=== PATIENT | female | born 1935 | race Hispanic/Latino ===

== ENCOUNTER → 2017-10-25 | Outpatient (CLI) | payer MEDICARE | END | disposition home or self-care (01) | LOC: SHCH 07:55 | PROVIDERS: ATTEND Internal Medicine Cardiovascular Disease | DX: I25.10 Atherosclerotic heart disease of native coronary artery without angina pectoris (principal) | CPT/HCPCS: 93880 ==

== ENCOUNTER → 2019-02-08 | Outpatient (CLI) | payer MEDICARE | END | disposition home or self-care (01) | LOC: SHCH 09:47 | PROVIDERS: ATTEND Internal Medicine Cardiovascular Disease | DX: I65.23 Occlusion and stenosis of bilateral carotid arteries (principal); I08.0 Rheumatic disorders of both mitral and aortic valves; I11.9 Hypertensive heart disease without heart failure | CPT/HCPCS: 93306; 93880 ==

== ENCOUNTER 2019-03-20 05:44 | Observation (INO) | payer MEDICARE ==
[2019-03-17 10:18] VITALS: BP 135/65
[2019-03-17 10:19] LABS: BASOPHILS % (AUTO) 1.1 % (0.0-5.0); EOSINOPHILS % (AUTO) 1.8 % (0.0-8.0); HEMATOCRIT 40.2 % (36-48); MEAN CORPUSCULAR HEMOGLOBIN 28.6 pg (27.0-33.0); MEAN CORPUSCULAR HGB CONC 33.7 g/dL (32.0-36.0); MEAN CORPUSCULAR VOLUME 84.9 fL (79-99); MONOCYTES % (AUTO) 8.8 % (3.0-13.0); NEUTROPHILS % (AUTO) 56.3 % (40.0-77.0); NUCLEATED RED BLOOD CELLS 0.1 % (0.0-0.19); PLATELET COUNT (AUTO) 225 K/uL (130-400); RED BLOOD CELL COUNT(AUTO) 4.73 MIL/uL (4.00-5.50); RED CELL DISTRIBUTION WIDTH 15.7 % (11.0-15.5); WHITE BLOOD COUNT (AUTO) 6.3 K/uL (4.8-10.8)
[2019-03-17 10:31] LABS: CREATININE 1.1 mg/dL (0.5-1.5); POTASSIUM 4.2 mmol/L (3.5-5.1)
[2019-03-17 10:45] LABS: INR 1.02 (0.85-1.15); PARTIAL THROMBOPLASTIN TIME 29.7 SEC (26.3-35.5); PROTHROMBIN TIME 10.7 SEC (9.6-11.6)
[2019-03-20] VITALS (8 sets, daily range): BP systolic 116–127; BP diastolic 59–88
[~2019-03-20] VITALS: Ht 157.5 cm; Wt 58.2 kg
[~2019-03-20 05:44] MED LIST: AMLO10TA7 PO; AMLO5TAB9 PO; APIX5TAB PO; ASPI-555 PO; ATOR10TA69 PO; CEFAZOLIN SODIUM 1 GM VIAL IVP SCH; FOLIC ACID PO; GLYB2.5 PO; RENAVITE PO; VITAMIN B12 PO
[2019-03-20] MEDS ORDERED: SODIUM CHLORIDE 0.9% 1000ML 1,000 ML IV ONE (06:06)
--- NOTE | 2019-03-20 11:05 | NUR ---
PROCEDURE PT TAKEN TO [employer] BASIS CONSULTANT FOR SCHEDULED PROCEDURE , FAMILY AT BEDSIDE
[2019-03-20] MEDS ORDERED: LIDOCAINE HCL 1% MDV 50ML VIAL ONE (11:18)
[2019-03-20] MEDS ORDERED: CEFAZOLIN SODIUM 1 GM VIAL ONE (11:18)
[2019-03-20] MEDS ORDERED: MIDAZOLAM HCL 1 MG/ML 2ML VIAL ONE ×3 (11:18→12:40)
[2019-03-20] MEDS ORDERED: BUPIVACAINE/PF 0.25% 30ML VIAL IJ ONE (11:18)
[2019-03-20] MEDS ORDERED: MEPERIDINE-PF 25 MG/ML SYG ONE ×3 (11:18→12:40)
[2019-03-20] MEDS ORDERED: IODIXANOL 320 MG/ML 100 ML VIAL ONE (11:25)
[2019-03-20] MEDS ORDERED: PROPOFOL 10 MG/ML 20ML VIAL IV ONE (11:59)
[2019-03-20] MEDS ORDERED: OCTYL 2-CYANOACRYLATE 1 EACH TP ONE (13:04)
[2019-03-20] MEDS ORDERED: ACETAMINOPHEN-CODEINE 300/30MG TAB PO PRN ×2 (13:30)
[2019-03-20] MEDS ORDERED: ONDANSETRON HCL 4 MG/2 ML VIAL IV PRN (13:30)
--- NOTE | 2019-03-20 13:50 | NUR ---
POST RECEIVED PT FROM [employer] SUPERVISOR, S/P BIVAICD INSERTION TO LEFT UPPER CHEST AREA WITH PRESSURE DRESSING DRY AND INTACT, NO BLEEDING OR HEMATOMA NOTED TO SITE. ARM SLING IN PLACE. PT AWAKE AND ALERT, BUT SEEMED DROWSY, VS STABLE ON ARRIVAL. FAMILY AT BEDSIDE. ICE PACKS APPLIED TO LEFT UPPER CHEST AREA. PLAN OF CARE DISCUSS WITH PT/ FAMILY, INSTRUCTED TO KEEP BEDREST UNTIL AM.
[2019-03-20] MEDS: ALPRAZOLAM 0.5 MG TABLET PO SCH ×2 (14:00→21:00)
--- NOTE | 2019-03-20 14:05 | NUR ---
MD DR. BRYAN NOTIFIED OF PATIENT TO BE ADMITTED UNDER HIS SERVICES.
[2019-03-20] MEDS ORDERED: ACETAMINOPHEN 325 MG TAB ONE (15:39)
[2019-03-20] MEDS ORDERED: ACETAMINOPHEN 325 MG TAB PO PRN (15:45)
[2019-03-20] MEDS: INSULIN HUMULIN R 100 UNIT/ML 3ML SQ SCH ×2 (16:30→21:00)
--- NOTE | 2019-03-20 17:00 | NUR ---
REPORT TO [facility] PT TRANSPORTED VIA BED.
[2019-03-20] MEDS ORDERED: GLYBURIDE 2.5 MG TAB PO SCH (21:00)
[2019-03-20] MEDS ORDERED: ATORVASTATIN CALCIUM 10 MG TABLET PO SCH (21:00)
[2019-03-20] MEDS ORDERED: LOSARTAN 50 MG TABLET PO SCH (21:00)
[2019-03-20] MEDS ORDERED: FOLIC ACID/VITAMIN B COMP W-C 1 MG CAP/TAB PO SCH (21:00)
[2019-03-20] MEDS ORDERED: AMLODIPINE BESYLATE 5 MG TAB PO SCH (21:00)
[2019-03-20] MEDS: CEFAZOLIN SODIUM 1 GM VIAL IVP SCH (21:08)
[2019-03-21] VITALS: BP 111/68
[2019-03-21] MEDS ORDERED: ONDANSETRON HCL 4 MG/2 ML VIAL IV PRN
[2019-03-21] MEDS ORDERED: ACETAMINOPHEN 325 MG TAB PO PRN ×2
[2019-03-21] MEDS ORDERED: HYDROCODONE/ACETAMINOPHEN 5/325 MG TAB PO PRN ×2
[2019-03-21 03:56] VITALS: BP 104/64
[2019-03-21] MEDS: CEFAZOLIN SODIUM 1 GM VIAL IVP SCH (04:53)
[2019-03-21] MEDS: INSULIN HUMULIN R 100 UNIT/ML 3ML SQ SCH ×2 (06:16→11:30)
[2019-03-21 07:15] VITALS: BP 104/57
[2019-03-21] MEDS ORDERED: ASPIRIN 81MG TAB.CHEW PO SCH (09:00)
[2019-03-21] MEDS ORDERED: FAMOTIDINE/PF 20 MG/2 ML VIAL IV SCH (09:00)
[2019-03-21] MEDS ORDERED: CYANOCOBALAMIN (VITAMIN B-12) 1,000 MCG TABLET PO SCH (09:00)
[2019-03-21] MEDS: ALPRAZOLAM 0.5 MG TABLET PO SCH (09:00)
[2019-03-21] MEDS ORDERED: FOLIC ACID 400 MG PO SCH (09:00)
[2019-03-21 11:04] VITALS: BP_SYST 103; BP_SYST 131; BP_DIAS 59; BP_DIAS 78
[2019-03-21] MEDS ORDERED: LOSA50TA64 PO (14:04)
[2019-03-21] MEDS ORDERED: DOXY100T2 PO (14:05)
== END 2019-03-21 14:29 | disposition home or self-care (01) ==
LOC: DAH 05:44 → DAHIP 05:45 → 2DH 17:44
PROVIDERS: ADMIT Internal Medicine; ATTEND Internal Medicine
DX: I11.0 Hypertensive heart disease with heart failure (principal); E11.9 Type 2 diabetes mellitus without complications; E78.5 Hyperlipidemia, unspecified; Z45.02 Encounter for adjustment and management of automatic implantable cardiac defibrillator; I25.10 Atherosclerotic heart disease of native coronary artery without angina pectoris; I48.92 Unspecified atrial flutter; N28.9 Disorder of kidney and ureter, unspecified; Z79.84 Long term (current) use of oral hypoglycemic drugs; Z95.1 Presence of aortocoronary bypass graft; I50.9 Heart failure, unspecified; I25.5 Ischemic cardiomyopathy; Z95.810 Presence of automatic (implantable) cardiac defibrillator; Z86.73 Personal history of transient ischemic attack (TIA), and cerebral infarction without residual deficits; Z79.899 Other long term (current) drug therapy
CPT/HCPCS: 33225; 33249; 36415; 71046; 80048; 82948 ×5; 85025; 85610; 85730; 93005 ×2; 96374; 96376; A4606; C1769 ×2; C1882; C1894; C1895 ×2; C1900; G0378 ×15; J0690 ×3; J2175 ×3; J2250 ×3; J2704; J3490 ×3; J7030; Q9967; 99156; 99157

== ENCOUNTER → 2019-09-11 | Outpatient (CLI) | payer MEDICARE ==
[~2019-09-11] MED LIST changes: -AMLO5TAB9 PO; -CEFAZOLIN SODIUM 1 GM VIAL IVP SCH; +DOXY100T2 PO; +LOSA50TA64 PO
== END | disposition home or self-care (01) ==
LOC: SHCH 10:52
PROVIDERS: ATTEND Internal Medicine Cardiovascular Disease
DX: I77.1 Stricture of artery (principal); I87.2 Venous insufficiency (chronic) (peripheral)
CPT/HCPCS: 93970

== ENCOUNTER → 2020-07-10 | Outpatient (CLI) | payer MEDICARE ==
[~2020-07-10] MED LIST changes: +AMLO-258 PO; -AMLO10TA7 PO; -ASPI-555 PO; +ASPI-556 PO
== END | disposition home or self-care (01) ==
LOC: SHCH 13:22
PROVIDERS: ATTEND Internal Medicine Cardiovascular Disease
DX: I08.1 Rheumatic disorders of both mitral and tricuspid valves (principal); I48.21 Permanent atrial fibrillation; R55 Syncope and collapse
CPT/HCPCS: 93306; 93356

== ENCOUNTER → 2021-02-19 | Outpatient (CLI) | payer MEDICARE ==
[~2021-02-19] MED LIST changes: -GLYB2.5 PO; +GLYB2.5T6 PO
== END | disposition home or self-care (01) ==
LOC: SHCH 11:20
PROVIDERS: ATTEND Internal Medicine Cardiovascular Disease
DX: I70.293 Other atherosclerosis of native arteries of extremities, bilateral legs (principal)
CPT/HCPCS: 93925

== ENCOUNTER → 2021-06-26 | Outpatient (CLI) | payer MEDICARE | END | disposition home or self-care (01) | LOC: RAH 09:08 | PROVIDERS: ATTEND Internal Medicine Cardiovascular Disease | DX: R19.00 Intra-abdominal and pelvic swelling, mass and lump, unspecified site (principal); Z90.49 Acquired absence of other specified parts of digestive tract | CPT/HCPCS: 76700 ==

== ENCOUNTER → 2023-09-30 | Outpatient (CLI) | payer MEDICARE | END | disposition home or self-care (01) | LOC: SHCH 10:40 | PROVIDERS: ATTEND Internal Medicine Cardiovascular Disease | DX: I08.0 Rheumatic disorders of both mitral and aortic valves (principal); I11.9 Hypertensive heart disease without heart failure; E78.5 Hyperlipidemia, unspecified; E11.9 Type 2 diabetes mellitus without complications; Z95.0 Presence of cardiac pacemaker; Z95.1 Presence of aortocoronary bypass graft | CPT/HCPCS: 93306 ==

== ENCOUNTER → 2025-04-06 | Outpatient (CLI) | payer MEDICARE ==
[~2025-04-06] MED LIST changes: -AMLO-258 PO; +CYAN-106 PO; -DOXY100T2 PO; +FOLI1TAB85 PO; +GLIM1TAB56 PO; -GLYB2.5T6 PO; +METO25TA6 PO; -RENAVITE PO; -VITAMIN B12 PO
--- NOTE | 2025-04-07 06:03 | HMCIMG ---
EXAM: CR Mandible, 6 Views. CLINICAL HISTORY: Fall. Injury. COMPARISON: Radiograph of the mandible dated 01/23/2015. FINDINGS: No acute fracture or aggressive appearing osseous lesion. Mild osteopenia. 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 Unremarkable soft tissues. IMPRESSION: No acute bony abnormality is evident. Mild osteopenia and degenerative changes with interval worsening. /[place]
== END | disposition home or self-care (01) ==
LOC: RAH 14:40
PROVIDERS: ATTEND Internal Medicine
DX: S00.83XA Contusion of other part of head, initial encounter (principal); M26.69 Other specified disorders of temporomandibular joint; M85.88 Other specified disorders of bone density and structure, other site; W19.XXXA Unspecified fall, initial encounter; Y93.89 Activity, other specified; Y92.89 Other specified places as the place of occurrence of the external cause; Y99.8 Other external cause status
CPT/HCPCS: 70110

== ENCOUNTER 2025-05-24 15:48 | Emergency (ER) | payer MEDICARE ==
[~2025-05-24] VITALS: Ht 152.4 cm; Wt 68.0 kg
--- NOTE | 2025-05-24 16:27 | EKG ---
[facility] Test Date: 2025-05-24 Test Time: 16:21:42 Pat Name: NURY PAULA Department: ED Room: Gender: F Rehab Rn: [id number] : 1935 Requested By: JIMMIE VELIZ Order Number: [id number] Reading MD: Juarez Pineda Measurements Intervals [place] Rate: 80 P: 97 DC: 199 QRS: 222 QRSD: 128 T: 117 QT: 415 QTc: 480 Interpretive Statements Atrial-sensed ventricular-paced rhythm Compared to ECG 01/25/2024 09:23:03 No significant changes Electronically Signed On 05-27-2025 21:30:52 CDT by Juarez Pineda Please click the below link to view image of tracing.
[2025-05-24 16:35] LABS: IMMATURE GRANULOCYTE ABSOLUTE 0.02 K/uL (0-1); NUCLEATED RED BLOOD CELLS 0.0 % (0.0-0.19); PLATELET COUNT (AUTO) 245 K/uL (130-400); RED BLOOD CELL COUNT(AUTO) 4.35 MIL/uL (4.00-5.50); RED CELL DISTRIBUTION WIDTH 15.6 % (11.0-15.5); WHITE BLOOD COUNT (AUTO) 6.4 K/uL (4.8-10.8)
[2025-05-24 16:39] LABS: CREATININE 1.0 mg/dL (0.5-1.0); GLOMERULAR FILTR. RATE CALC 54.0 mL/min (>90); GLUCOSE,RANDOM 186.0 mg/dL (70-105); SODIUM SERUM 129.0 mmol/L (136-145); UREA NITROGEN, BLOOD 16.0 mg/dL (7-18)
[2025-05-24 16:44] LABS: CREATINE KINASE, TOTAL 51.0 U/L (21-232)
--- NOTE | 2025-05-24 17:27 | ERN ---
General Chief Complaint: Seizure Stated Complaint: SEIZURES Time Seen by MD: 15:57 Source: patient History of Present Illness Initial Comments PATIENT IS A AN 89-YEAR-OLD FEMALE COMING IN WITH SEIZURE-LIKE ACTIVITY. PER FAMILY MEMBER PATIENT DID HAVE A SEIZURE HAS NOT HAD SOMETHING SIMILAR TO THIS IN THE PAST. Allergies: Coded Allergies: No Known Drug Allergies (Unverified Allergy, Unknown, 03/17/19) Home Meds Reported Medications Metoprolol Tartrate (Metoprolol Tartrate) 25 Mg Tablet, 25 MG PO BID, TAB 01/25/24 Cyanocobalamin (Vitamin B-12) (Vitamin B12) 1,000 Mcg Tablet, 1000 MCG PO DAILY, TAB 01/25/24 Vit B Cmplx 3/FA/Vit C/Biotin (Yue-Carl Rx Tablet) 1 Mg-60 Mg-300 Mcg Tablet, 1 EACH PO HS, TAB 01/25/24 Glimepiride (Glimepiride) 1 Mg Tablet, 1 MG PO DAILY, TAB 01/25/24 Losartan Potassium (Losartan Potassium) 50 Mg Tablet, 50 MG PO AM, TAB 03/21/19 [Folic Acid] No Conflict Check, 400 MG PO DAILY 03/17/19 Apixaban (Eliquis) 5 Mg Tablet, 5 MG PO BID, TAB 03/17/19 Aspirin (Aspir 81) 81 Mg Tablet.dr, 81 MG PO DAILY, TAB 03/17/19 Atorvastatin Calcium (Atorvastatin Calcium) 10 Mg Tablet, 10 MG PO HS, TAB 03/17/19 Past Medical History Past Medical History: A-Fib, Dementia, Diabetes-Type II, High Cholesterol, Hypertension Past Surgical History: Unknown ROS Dictation CONSTITUTIONAL: NO CHILLS, NO FEVER, NO WEAKNESS, NO DIAPHORESIS, NO MALAISE. HEAD/FACE: NO SIGNS OF TRAUMA. EENT: NO EYE PAIN, NO BLURRED VISION, NO TEARING, NO DOUBLE VISION, NO EAR PAIN, NO EAR DISCHARGE, NO NOSE PAIN, NO NASAL CONGESTION, NO THROAT PAIN, NO THROAT SWELLING, NO MOUTH PAIN. RESPIRATORY: NO COUGH, NO ORTHOPNEA, NO SOB, NO STRIDOR, NO WHEEZING. CARDIOVASCULAR: NO CHEST PAIN, NO EDEMA, NO PALPITATIONS, NO SYNCOPE. GASTROINTESTINAL/ABDOMINAL: NO ABDOMINAL PAIN, NO CONSTIPATION, NO DIARRHEA, NO NAUSEA, NO VOMITING. GENITOURINARY: NO ABNORMAL DISCHARGE, NO DYSURIA, NO FREQUENT URINATION, NO HEMATURIA. NO COMPLAINTS OF PAIN IN THE GENITALS. MUSCULOSKELETAL: NO BACK PAIN, NO GOUT, NO JOINT PAIN, NO JOINT SWELLING, NO MUSCLE PAIN, NO MUSCLE STIFFNESS, NO NECK PAIN. INTEGUMENTARY: NO CHANGE IN COLOR, NO CHANGE IN HAIR/NAILS, NO DRYNESS, NO LESION, NO LUMPS, NO RASH. NEUROLOGICAL/PSYCH: NO ANXIETY, NOT DEPRESSED, NO EMOTIONAL PROBLEM, NO HEADACHE, NO NUMBNESS, NO PRE-EXISTING DEFICIT, NO HISTORY OF SEIZURES, NO TREMORS, NO WEAKNESS. HEMATOLOGIC/LYMPHATIC: NOT ANEMIC, NO HISTORY OF BLOOD CLOTS, NO APPARENT BLEEDING, NO BRUISING, GLANDS NOT SWOLLEN. ALL SYSTEMS NEGATIVE, EXCEPT NOTED. Physical Exam Physical Exam Dictation VITAL SIGNS: REVIEWED. GENERAL APPEARANCE: ALERT, ORIENTED X3, NO ACUTE DISTRESS, OBESE. HEAD AND FACE: NON-TRAUMATIC. EYES: PERRL, PINK CONJUNCTIVAS, EYELID NO TRAUMA, ANTERIOR CHAMBER CLEAR. EARS: PINNAS INTACT AND NO SIGNS OF TRAUMA OR ERYTHEMA. EAR CANALS CLEAR AND NO DISCHARGE. TMS NO ERYTHEMA. NOSE: NO DISCHARGE, NO BLEEDING. OROPHARYNX: MOUTH NORMAL, TEETH NO CARIES, TONGUE PINK. PHARYNX CLEAR, NO ERYTHEMA. TONSILS NO EXUDATES, NO ABSCESSES NOTED. MUCOUS MEMBRANE MOIST. NECK: SUPPLE, NON-TENDER, NO THYROMEGALY, NO MASSES, NO JVD, NO BRUITS. BREAST: DEFERRED. CHEST: NO TENDERNESS, NO CREPITUS, NO PARADOXICAL MOVEMENT, NO RETRACTIONS. LUNGS: CLEAR, WELL-VENTILATED, SYMMETRIC, NO RALES, NO WHEEZING, NO RHONCHI, NO STRIDOR, GOOD BREATH SOUNDS BILATERALLY. HEART: REGULAR RATE, REGULAR RHYTHM, NO MURMUR, NO GALLOPS. VASCULAR: NO PERIPHERAL EDEMA. ABDOMEN: SOFT, POSITIVE BOWEL SOUNDS, NONDISTENDED, NO GUARDING, NONTENDER, NO REBOUND, NO MASSES NO HEPATOMEGALY, NO SPLENOMEGALY, NO ALEXANDER'S SIGN, NO HERNIAS. RECTAL: DEFERRED. GENITAL: DEFERRED. NEUROLOGICAL: NORMAL SPEECH, GROSS MOTOR FUNCTION INTACT, GROSS SENSORY FUNCTION INTACT. MUSCULOSKELETAL: NECK NONTENDER, FULL RANGE OF MOTION, BACK NONTENDER, FULL RANGE OF MOTION. EXTREMITIES: NONTENDER, FULL RANGE OF MOTION. SKIN: COLOR PINK, DRY, NO TURGOR, NO RASH, NO LACERATIONS, NO ABRASIONS, NO CONTUSIONS. LYMPHATICS: DEFERRED. Results Laboratory and Microbiology Lab and Micro Result Laboratory Tests Test 05/24/25 16:25 White Blood Count 6.4 K/uL (4.8-10.8) Red Blood Count 4.35 MIL/uL (4.00-5.50) Hemoglobin 12.0 g/dL (12.0-16.0) Hematocrit 36.5 % (36-48) Mean Corpuscular Volume 83.9 fL (79-99) Mean Corpuscular Hemoglobin 27.6 pg (27.0-33.0) Mean Corpuscular Hemoglobin Concent 32.9 g/dL (32.0-36.0) Red Cell Distribution Width 15.6 % (11.0-15.5) H Platelet Count 245 K/uL (130-400) Mean Platelet Volume 9.5 fL (7.5-10.5) Immature Granulocyte % (Auto) 0.3 % (0-1) Neutrophils (%) (Auto) 59.9 % (40.0-77.0) Lymphocytes (%) (Auto) 23.1 % (21.0-51.0) Monocytes (%) (Auto) 12.2 % (3.0-13.0) Eosinophils (%) (Auto) 3.6 % (0.0-8.0) Basophils (%) (Auto) 0.9 % (0.0-5.0) Neutrophils # (Auto) 3.8 K/uL (1.8-7.7) Lymphocytes # (Auto) 1.5 K/uL (1.0-4.8) Monocytes # (Auto) 0.8 K/uL (0.1-1.0) Eosinophils # (Auto) 0.23 K/uL (0.00-0.70) Basophils # (Auto) 0.06 K/uL (0.00-0.20) Absolute Immature Granulocyte (auto 0.02 K/uL (0-1) Nucleated Red Blood Cells 0.0 % (0.0-0.19) Sodium Level 129 mmol/L (136-145) L Potassium Level 4.5 mmol/L (3.5-5.1) Chloride Level 95 mmol/L (101-111) L Carbon Dioxide Level 27 mmol/L (21-32) Blood Urea Nitrogen 16 mg/dL (7-18) Creatinine 1.0 mg/dL (0.5-1.0) Glomerular Filtration Rate Calc 54 mL/min (>90) Random Glucose 186 mg/dL (70-105) H Total Calcium 8.6 mg/dL (8.5-10.1) Magnesium Level 1.70 mg/dL (1.80-2.40) L Total Creatine Kinase 51 U/L (21-232) Troponin I High Sensitivity 22 ng/L (4-50) Labs Reviewed?: Yes EKG/XRAY/US/CT/MRI EKG Comment [id number] TIME 4:21 P.M. VENTRICULAR RATE [address] WAVE ELEVATION OR DEPRESSION CT Scan Comment [place] [address] [place] [id number] IMAGING REPORT Signed PATIENT: NURY PAULA MR#: [id number] : 1935 SEX: F AGE: 89 LOCATION: [facility] ORDER [id number] STATUS: REG ER REPORT#: [id number] SERVICE 1609 REASON: SEIZURE ORDERING PHYSICIAN: JIMMIE VELIZ MD PROCEDURE: HEAD WO - CT HEAD/BRAIN W/O CONTRAST EXAM: CT Head Without IV contrast. CLINICAL HISTORY: SEIZURE TECHNIQUE: Axial computed tomography images of the head/brain without intravenous contrast. COMPARISON: None provided. FINDINGS: BRAIN: Atrophy. Periventricular white matter changes felt secondary to chronic microangiopathy. No evidence of acute hemorrhage. No mass lesion. No CT evidence for acute territorial infarct. No midline shift or extra-axial collections. VENTRICLES: No hydrocephalus. ORBITS: The orbits are unremarkable. SINUSES AND MASTOIDS: Left maxillary sinus disease BONES: No fracture. SOFT TISSUES: Unremarkable. IMPRESSION: No acute intracranial abnormality. /[place] DICTATED BY: JADEN MANJARREZ MD DATE: 05/24/251840 ELECTRONICALLY SIGNED BY: JADEN MANJARREZ MD DATE: 05/24/251840 [facility] MDM: 7.:00 p.m. patient was signed out to me by a.m. physician. This is an 89-year-o ld female with multiple medical problems lives with her son Ben and was brought to the emergency room for evaluation of a tonic-clonic seizure around 3:00 p.m. today. Ben stated that patient has underlying dementia and past week she was more with it and was doing fairly well. She was sitting on the couch and suddenly developed rolling of the eyes back became stiff and had sym metric body movements. Patient also had bitten her tongue on the left side and her lip. The movements lasted for about a minute and patient has slowly recovered eventually. Patient is a very poor historian due to progressive underlying dementia. 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 Patient was moaning and agitated screaming intermittently and mumbling uni ntelligibly. Temperature 98.6 pulse 102 respirations 16 blood pressure 133/76 with a pulse oximetry of 98% on room air Her chronic medical problems include atrial fibrillation on apixaban, diabetes mellitus type 2, hypertension, hypercholesterolemia, advanced cardiomyopathy with an ejection fraction of 35% in 2019, coronary artery disease status post CABG and dementia Labs reviewed sodium 129 chloride 95 BUN and creatinine are 16 and 1.0 with a glucose of 186 CBC is with a normal limits. Troponins are negative CT scan of the head without contrast was essentially unremarkable for any hemorrhage or new intracranial event. Brain atrophy consistent with age noted. I updated son Ben at bedside on my concerns for new tonic-clonic seizure which may simply be related to multiple triggering events including dehydration, infection, amyloid deposits due to progressive dementia. Due to lack of availability of neurology services I have recommended transfer to [facility] for evaluation of her new onset tonic-clonic seizures and family is agreeable 7:50 p.m. initiated transfer 9:[address] Rosa Elena Rich, hospitalist and patient's primary care physician has a accepted the patient for admission to [facility] for further management. Once transportation is arranged patient will be transferred. DIFFERENTIAL DIAGNOSIS: NEW ONSET SEIZURE, RATIONALE: TESTS CONSIDERED AND ORDERED SECONDARY TO SHARED DECISION MAKING INCLUDE: LABS, ECG AND RADIOLOGY PREVIOUS OUTSIDE RECORDS REVIEWED: OLD ER VISITS. RISK OF COMPLICATION AND/OR MORBIDITY OR MORTALITY OF PATIENT MANAGEMENT: NONE MEDICATIONS-PER MEDICATION RECONCILIATION NEED FOR HOSPITALIZATION: PATIENT DOES MEET CRITERIA FOR HOSPITALIZATION. NEED FOR EMERGENCY MAJOR/MINOR SURGERY: NO THERE ARE NO SOCIAL CONCERNS WITH THIS PATIENT. PRESCRIPTION DRUG MANAGEMENT PRESCRIPTIONS WILL INCLUDE SYMPTOMATIC CARE PATIENT'S PRIOR EXTERNAL MEDICAL RECORDS FROM OTHER ER VISITS WERE REVIEWED BY ME INDICATED. PRIOR TESTING AND RESULTS FROM PREVIOUS VISITS WERE REVIEWED. PRIOR TESTS WERE TAKEN INTO ACCOUNT WITH MEDICAL DECISION MAKING AND RESOURCE UTILIZATION, INDEPENDENT HISTORIAN/HISTORIANS WERE USED TO OBTAIN COMPLETE MEDICAL HISTORY. I INDEPENDENTLY INTERPRETED THE TEST THAT WERE PERFORMED, RESULTS WERE REVIEWED BY ME AND CONSIDERED FINDINGS ON RADIOLOGY IF ORDERED. MEDICAL MANAGEMENT AND EXAMINATION INTERPRETATION DISCUSSIONS WERE HAD BY ME WITH OTHER QUALIFIED HEALTHCARE PROFESSIONALS INDICATED FOR THE PATIENT'S CARE. ED Course Orders Procedure Category Date Status Time Cbc With Differential LAB 05/24/25 Complete 16:09 Chest 1vw RAD 05/24/25 Resulted 16:09 12 Lead Ekg Tracing- EKG 05/24/25 Complete Technical 16:09 0.9%Nacl 1000ml (Ns PHA 05/24/25 Complete 1000ml) 16:30 Magnesium LAB 05/24/25 Complete 16:09 Creatine Kinase, Total LAB 05/24/25 Complete 16:09 Troponin I High LAB 05/24/25 Complete Sensitivity 16:09 Urinalysis Profile LAB 05/24/25 Logged 16:09 Basic Metabolic Panel LAB 05/24/25 Complete 16:09 Ct Head/Brain W/O CT 05/24/25 Resulted Contrast 16:09 Magnesium 2gm Premix PHA 05/24/25 In Process 50ml (Magnesium 2gm 19:00 Levetiracetam 500 PHA 05/24/25 In Process Mg/5 Ml Sd V (Keppra 5 22:00 Albuterol 0.083% PHA 05/24/25 In Process 2.5mg/3ml (Proventil 20:00 Furosemide 20mg Vial PHA 05/24/25 In Process (Lasix 20mg Vial) 20:00 Haloperidol Inj PHA 05/24/25 Complete (Haldol Inj) 23:00 Current Medications Medications (Trade) Dose Ordered Sig/Pura Route PRN Reason Start Time Stop Time Status Last Admin Dose Admin Albuterol Sulfate (Proventil 0.083% 2.5mg/3ml) 2.5MG ONCE IH 05/24/25 20:00 05/24/25 23:59 05/24/25 21:57 Furosemide (LASix 20MG VIAL) 20 mg ONCE IV 05/24/25 20:00 05/24/25 23:59 05/24/25 21:38 Haloperidol Lactate (Haldol Inj) 2 mg ONCE ONCE IM 05/24/25 23:00 05/24/25 23:01 DC 05/24/25 23:04 Levetiracetam 1000 mg/Sodium Chloride 100 ml @ 400 mls/hr Q8H6 IV 05/24/25 22:00 06/23/25 21:59 05/24/25 22:02 Magnesium Sulfate 50 ml @ 0 mls/hr PROTOCOL IV 05/24/25 19:00 06/23/25 18:59 05/24/25 21:38 Sodium Chloride 1,000 ml @ 0 mls/hr ONCE ONCE IV 05/24/25 16:30 05/24/25 16:31 DC 05/24/25 17:48 Vital Signs Date Time Temp Pulse Resp B/P (MAP) Pulse Ox O2 Delivery O2 Flow Rate FiO2 05/24/25 23:18 78 18 125/79 97 Room Air* 0 21 05/24/25 22:08 80 18 138/83 98 Room Air* 0 21 05/24/25 21:53 92 23 05/24/25 19:46 97.9 81 18 139/85 99 Room Air* 0 05/24/25 15:49 102 16 133/76 98 Room Air 0 We will perform diagnostic labs, advanced imaging and administer medications acc ording to the patient's complaint. Once the results are available, will review and personally interpreted the labs to rule out any acute life-threatening emergency the trach require immediate intervention and treatment. I will then re-evaluate the patient after treatment and diagnostic exams have return to determine whether the patient requires any further testing, can safely be discharged home or need further admission to hospital for additional treatment and evaluation. DX & DISP Disposition: Transfer Departure Impression: Primary Impression: New onset seizure Additional Impressions: Delirium, Dementia, Atrial fibrillation, Current use of snf anticoagulation, Ischemic cardiomyopathy, CAD (coronary artery disease) Condition: Stable Additional Instructions: The patient has been informed about all the diagnostic tests and procedures c arried out in the emergency room today and has confirmed understanding of the results. Patient will be transferred to a facility that provides a higher level of care since such services are not accessible locally or within our immediate community. The patient is alert oriented and not experiencing any acute distress. There are no signs of sepsis and patient's hemodynamic status is stable at the moment. Medically, the patient is considered stable for transfer Patient accepted by Dr. Rich for admission to [facility] step-down unit. Referrals: ROSA ELENA RICH MD (PCP) JIMMIE VELIZ MD May 24, 2025 17:27 DANISH ALMODOVAR MD May 25, 2025 00:06
--- NOTE | 2025-05-24 17:42 | HMCIMG ---
EXAM: CT Head Without IV contrast. CLINICAL HISTORY: SEIZURE TECHNIQUE: Axial computed tomography images of the head/brain without intravenous contrast. COMPARISON: None provided. FINDINGS: BRAIN: Atrophy. Periventricular white matter changes felt secondary to chronic microangiopathy. No evidence of acute hemorrhage. No mass lesion. No CT evidence for acute territorial infarct. No midline shift or extra-axial collections. VENTRICLES: No hydrocephalus. ORBITS: The orbits are unremarkable. SINUSES AND MASTOIDS: Left maxillary sinus disease BONES: No fracture. SOFT TISSUES: Unremarkable. IMPRESSION: No acute intracranial abnormality. /[place]
[2025-05-24] MEDS: 0.9%NACL 1000ML 1,000 ML IV ONE (17:48)
--- NOTE | 2025-05-24 18:52 | HMCIMG ---
EXAM: CR Chest, 1 View. CLINICAL HISTORY: CP COMPARISON: None provided. FINDINGS: LUNGS: Mild CHF PLEURAL SPACES: No evidence of pleural effusion or pneumothorax. MEDIASTINUM: Compatible with mild congestive heart failure Cardiac silhouette prominent BONES: No acute osseous abnormality. IMPRESSION: 1. Compatible with mild congestive heart failure 2. Cardiac silhouette prominent /[place]
[2025-05-24 19:46] VITALS: TEMP 97.9
[2025-05-24] MEDS: MAGNESIUM 2GM PREMIX 50ML 50 ML IV SCH (21:38)
--- NOTE | 2025-05-24 21:40 | NUR ---
PHARMACY CALLED FOR LEE MCKEON.
[2025-05-24 21:53] VITALS: PULSE 92; RESP 23
[2025-05-24] MEDS: ALBUTEROL 0.083% 2.5 MG/3 ML INH IH SCH (21:57)
[2025-05-24] MEDS: leveTIRACEtam 500 MG/5 ML SD V 1,000 MG in 0.9%NACL 100ML 100 ML IV SCH (22:02)
[2025-05-24] MEDS: HALOPERIDOL INJ 5 MG/ML VIAL IM ONE (23:04)
[2025-05-24 23:18] VITALS: BP 125/79; PULSE 78; RESP 18; O2SAT 97
--- NOTE | 2025-05-24 23:30 | NUR ---
[facility] CONTACT[place] [facility] [place]
--- NOTE | 2025-05-24 23:37 | NUR ---
REPORT CALLED TO [facility], ROOM [id number].
--- NOTE | 2025-05-24 23:40 | NUR ---
PATIENT AGGITATED, RESTLESS, DAUGHTER AT BEDSIDE.
--- NOTE | 2025-05-24 23:50 | NUR ---
EMS PRESENT TO TRANSFER PATIENT.
== END 2025-05-25 00:02 | disposition short-term general hospital (02) ==
LOC: EDH 15:48
DX: R56.9 Unspecified convulsions (principal); F03.90 Unspecified dementia, unspecified severity, without behavioral disturbance, psychotic disturbance, mood disturbance, and anxiety; F05 Delirium due to known physiological condition; I48.91 Unspecified atrial fibrillation; I25.5 Ischemic cardiomyopathy; I25.10 Atherosclerotic heart disease of native coronary artery without angina pectoris; E11.9 Type 2 diabetes mellitus without complications; E78.00 Pure hypercholesterolemia, unspecified; I10 Essential (primary) hypertension; Z79.01 Long term (current) use of anticoagulants; Z79.82 Long term (current) use of aspirin; Z79.899 Other long term (current) drug therapy; Z95.0 Presence of cardiac pacemaker
CPT/HCPCS: 99285; 96365; 70450; 71045; 96361; 96375; 82550; 83735; 84484; 80048; 85025; 36415; 96368; 93005; 94640; 96372; J3475; J1953; J7030; J1630; J1938